=== PATIENT | female | born 1990 | race American Indian/Alaskan Native ===

== ENCOUNTER 2021-07-27 23:48 | Emergency (ER) | payer MEDICAID ==
[2021-07-28] MEDS ORDERED: ASPIRIN 325 MG TAB PO ONE (06:11)
[2021-07-28] MEDS ORDERED: LIDOCAINE-MPF (1%) 10 MG/1 ML VIAL 5 ML INFILTRATI ONE (06:40)
[2021-07-28] MEDS ORDERED: HYDROcodone/ACETAMINOPHEN 10-325MG TAB PO ONE (06:40)
--- NOTE | 2021-07-28 06:41 | Emergency Department Report ---
- General Chief complaint: Urogenital-Female Stated complaint: LUMP ON VAGINA,PAINFUL Time Seen by Provider: 07/28/21 06:31 Source: patient Mode of arrival: Ambulatory Limitations: No Limitations - History of Present Illness Initial comments: Patient is a 31-year-old female that comes to the emergency room with a left labial abscess. She states that she recently shaved and put a piercing back and her clitoris and suddenly yesterday and abscess popped up. She has not had these before. She reports pain. Last menstrual period 2 weeks ago. Denies any vaginal bleeding or discharge. Patient ambulatory, nontoxic [id number] on exam in triage. MD complaint: abscess/boil -: Sudden, days(s) Tetanus Up to Date: yes Severity: severe Quality: aching Consistency: constant Improves with: none Worsens with: none Context: none Associated symptoms: denies other symptoms Treatments Prior to Arrival: none - Related Data Previous Rx's Medication Instructions Recorded Last Taken Type Ibuprofen [Motrin] 800 mg PO Q8HR PRN #30 tablet 07/28/21 Unknown Rx Sulfamethoxazole/Trimethoprim 1 each PO BID #10 tablet 07/28/21 Unknown Rx [Bactrim DS TAB] Allergies Allergy/AdvReac Type Severity Reaction Status Date / Time amoxicillin [From Augmentin] Allergy Hives Verified 07/27/21 23:59 clavulanic acid Allergy Hives Verified 07/27/21 23:59 [From Augmentin] Abscess Boil HPI - HPI Chief Complaint: Urogenital-Female Stated Complaint: LUMP ON VAGINA,PAINFUL Time Seen by Provider: 07/28/21 06:31 Home Medications: Previous Rx's Medication Instructions Recorded Last Taken Type Ibuprofen [Motrin] 800 mg PO Q8HR PRN #30 tablet 07/28/21 Unknown Rx Sulfamethoxazole/Trimethoprim 1 each PO BID #10 tablet 07/28/21 Unknown Rx [Bactrim DS TAB] Allergies/Adverse Reactions: Allergies Allergy/AdvReac Type Severity Reaction Status Date / Time amoxicillin [From Augmentin] Allergy Hives Verified 07/27/21 23:59 clavulanic acid Allergy Hives Verified 07/27/21 23:59 [From Augmentin] ED Review of Systems ROS: Stated complaint: LUMP ON VAGINA,PAINFUL Other details as noted in HPI Comment: All other systems reviewed and negative ED Past Medical Hx - Past Medical History Previous Medical History?: Yes Additional medical history: Obese - Surgical History Past Surgical History?: Yes Additional Surgical History: BREAST REDUCTION, C SECTION X3, TONSILLECTOMY - Family History Family history: no significant - Social History Smoking Status: Never Smoker Substance Use Type: None - Medications Home Medications: Home Medications Medication Instructions Recorded Confirmed Last Taken Type Ibuprofen [Motrin] 800 mg PO Q8HR PRN #30 tablet 07/28/21 Unknown Rx Sulfamethoxazole/Trimethoprim 1 each PO BID #10 tablet 07/28/21 Unknown Rx [Bactrim DS TAB] ED Physical Exam - General Limitations: No Limitations General appearance: alert, in no apparent distress - Head Head exam: Present: atraumatic, normocephalic - Eye Eye exam: Present: normal appearance - ENT ENT exam: Present: mucous membranes moist - Neck Neck exam: Present: normal inspection - Respiratory Respiratory exam: Present: normal lung sounds bilaterally. Absent: respiratory distress - Cardiovascular Cardiovascular Exam: Present: regular rate, normal rhythm. Absent: systolic murmur, diastolic murmur, rubs, gallop - GI/Abdominal GI/Abdominal exam: Present: soft, normal bowel sounds - External exam: Present: swelling, other (Left labial abscess, that popped on exam in the ER) - Extremities Exam Extremities exam: Present: normal inspection - Back Exam Back exam: Present: normal inspection - Neurological Exam Neurological exam: Present: alert, oriented X3 - Psychiatric Psychiatric exam: Present: normal affect, normal mood - Skin Skin exam: Present: warm, dry, intact, normal color. Absent: rash ED Course Vital Signs 07/27/21 23:56 Temperature 98.7 F Pulse Rate 98 H Respiratory 18 Rate Blood Pressure 147/94 O2 Sat by Pulse 94 Oximetry ED Medical Decision Making - Medical Decision Making Vital Signs 07/27/21 23:56 Temperature 98.7 F Pulse Rate 98 H Respiratory 18 Rate Blood Pressure 147/94 O2 Sat by Pulse 94 Oximetry Patient medicated with 1 g Rocephin IM. Patient educated on care and management of the abscess. The abscess popped during exam in ER. This provided relief of the pain and pressure. She was also medicated for pain. Patient being discharged home with discharge plan of care including medicines, diet, activity, wound care, and follow-up. She has been given referral to [facility]. She has been advised to take out her piercing. She has been advised to not shave her periarea. Patient verbalizes understanding of plan of care - Differential Diagnosis Abscess Critical care attestation.: If time is entered above; I have spent that time in minutes in the direct care of this critically ill patient, excluding procedure time. ED Disposition Clinical Impression: Abscess Disposition: 01 HOME / SELF CARE / HOMELESS Is pt being admited?: No Does the pt Need Aspirin: No Condition: Stable Instructions: Skin Abscess Additional Instructions: meds as ordered today remove piercing follow up with obgyn keyshawn referral below avoid shaving epsom salt soaks Prescriptions: Sulfamethoxazole/Trimethoprim [Bactrim DS TAB] 1 each PO BID #10 tablet Ibuprofen [Motrin] 800 mg PO Q8HR PRN #30 tablet PRN Reason: Pain, Moderate (4-6) Referrals: MELI MACKAY MD [Primary Care Provider] - 3-5 Days DIRK BURROUGHS MD [Staff Physician] - 3-5 Days Forms: Work/School Release Form(ED) Time of Disposition: 06:59
[2021-07-28] MEDS ORDERED: SODIUM CHLORIDE 0.9% IRR 500 ML BOTTLE IR ONE (07:51)
[2021-07-28 08:10] VITALS: BP 134/79
== END 2021-07-28 08:10 | disposition home or self-care (01) ==
LOC: ED 23:48
DX: N76.4 Abscess of vulva (principal); Z98.890 Other specified postprocedural states; Z88.6 Allergy status to analgesic agent; Z88.1 Allergy status to other antibiotic agents
CPT/HCPCS: 96372; 99282; J0696; J3490